=== PATIENT | female | born 1930 | race Caucasian/White ===

== ENCOUNTER → 2017-03-16 | Emergency (ER) | payer MEDICARE, BC ==
[~2017-03-16] VITALS: Ht 165.1 cm; Wt 113.4 kg
[~2017-03-16] MED LIST: LEVOTHYROXINE75 MCG ORAL
--- NOTE | 2017-03-16 17:32 | Emergency Room Report ---
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 Past Surgical History: none Pertinent Family History: none Now: No Immunizations: UTD Reviewed Nursing Documentation: PMH: Agreed, PSxH: Agreed Review of Systems All Other Systems: negative except mentioned in HPI Physical Exam Vital Signs Date Time Temp Pulse Resp B/P (MAP) Pulse Ox O2 Delivery O2 Flow Rate FiO2 03/16/17 17:17 97.9 72 16 140/90 98 Room Air Sp02 EP Interpretation: reviewed, normal General Appearance: normal inspection, well appearing, no apparent distress, alert, GCS 15, non-toxic, obese Eyes: bilateral eye PERRL, bilateral eye EOMI ENT: normal ENT inspection, hearing grossly normal, normal voice Neck: normal inspection, full range of motion, supple, no bony tend, tender midline, other - C-collar placed in ED Respiratory: normal inspection, chest non-tender, lungs clear, normal breath sounds, no rhonchi, no respiratory distress, no retraction, no accessory muscle use, no wheezing Gastrointestinal: normal inspection, normal bowel sounds, non tender, soft, no guarding, no hernia Genitourinary: no CVA tenderness Musculoskeletal: normal inspection, back normal, normal range of motion, Payton' s Sign negative, other - No shortening or rotation of right leg. Pelvis stable. No trauma or ttp to right hip. Small abrasion to right elbow. 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 CT C-spine: No other obvious trauma, deformity, bruises/ecchymoses on exam Right leg is normal length, not shortened/rotated. Pelvis stable Lungs CTAB - no ttp to right chest Abd soft NT/ND CT c-spine: negative CXR 1 view ED review No acute fx, PTX, consolidation Dr Miguel Spence MD Pelvis 1 view ED review No acute fx, dislocation, soft tissue swelling Dr Miguel Spence MD Patient DCed home with family members Last Vital Signs Date Time Temp Pulse Resp B/P (MAP) Pulse Ox O2 Delivery O2 Flow Rate FiO2 03/16/17 17:17 97.9 72 16 140/90 98 Room Air Status: improved Disposition: HOME, SELF-CARE MIGUEL SPENCE M.D. Mar 16, 2017 17:32
[2017-03-16 19:16] VITALS: BP 142/68
[2017-03-16 19:18] VITALS: BP 140/90
--- NOTE | 2017-03-17 09:50 | Diagnostic Imaging Report ---
Indication: Neck pain. Technique: Continuous helical imaging of the cervical spine was obtained transaxially from the skull base to the upper thoracic spine. 2-D coronal and sagittal reformatted images were obtained. Total Dose length Product (DLP): [address] Dose Index Volume (CTDIvol): 0.25, 23.41 mGy Comparison: None Findings: There is no acute fracture identified. The bones are diffusely osteopenic. There is severe disc disease with narrowing at C4-5, C5-6, C6-7 with accompanying endplate sclerosis and osteophyte formation. Anterolisthesis ease noted at C3-4 and C4-5. Moderate hypertrophy of the facets and uncovertebral joints noted at multiple levels. There is moderate to severe stenosis of the left C3-4 neural foramen, moderate stenosis of the left C4-5 neural foramen, moderate bilateral C5-6 and C6-7 neural foraminal stenosis. The degenerative changes may be better evaluated by MR. Vascular calcifications are present involving the extracranial, visualized portions of the carotid arteries. Impression: No acute injury identified. 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 Evaluation with MRI may be of benefit. Atherosclerotic vascular disease The CT scanner at [facility] is accredited by the [employer] and the scans are performed using dose optimization techniques as appropriate to a performed exam including Automatic Exposure control.
--- NOTE | 2017-03-17 11:40 | Diagnostic Imaging Report ---
Indication: Chest pain Comparison: None A single view chest radiograph was obtained. Findings: Cardiomediastinal appearance is within normal limits for age. Pulmonary vascularity is appropriate. The diaphragmatic contour is smooth and costophrenic angles are sharp. No pleural effusions are identified. The bones are osteopenic. Impression: No acute findings
--- NOTE | 2017-03-17 11:41 | Diagnostic Imaging Report ---
Indication: pain Findings: Single AP view of the pelvis was performed. Bones are osteopenic. There is no malalignment or obvious fracture. Impression: No definite acute injury identified
== END | disposition home or self-care (01) ==
LOC: EDBD 17:12 → EMR 19:31
DX: M25.521 Pain in right elbow (principal); R07.9 Chest pain, unspecified; M25.551 Pain in right hip; Z91.81 History of falling; M06.9 Rheumatoid arthritis, unspecified; E66.9 Obesity, unspecified; Z68.41 Body mass index [BMI] 40.0-44.9, adult; M47.892 Other spondylosis, cervical region; I70.90 Unspecified atherosclerosis; M85.80 Other specified disorders of bone density and structure, unspecified site
CPT/HCPCS: 71010; 72125; 72170; 99284